=== PATIENT | male | born 1955 | race Caucasian/White ===

== ENCOUNTER 2018-03-06 10:52 | Emergency (ER) | payer BC, OTHER ==
[2018-03-06 11:00] VITALS: RESP 18; TEMP 98.1
--- NOTE | 2018-03-06 11:09 | ED ---
General Adult HPI - General Chief complaint: Urogenital Stated complaint: urine retention Time Seen by Provider: 03/06/18 11:01 Source: patient, family, RN notes reviewed Mode of arrival: ambulatory Limitations: no limitations - History of Present Illness Initial comments: Patient is a pleasant 62-year-old male presenting to the emergency Department with complaints of decreased urination. Onset of symptoms was yesterday morning. Patient still is able to urinate however only small amounts. Patient is urinating frequently and has urgency. Patient states there may be some minimal dysuria at the very end. Patient does not have suprapubic fullness or abdominal tenderness. No history of similar symptoms previously. - Related Data Home Medications Medication Instructions Recorded Confirmed Aspirin 81 mg PO DAILY 09/06/14 03/06/18 Calcium Carbonate [Calcium] 600 mg PO DAILY 09/06/14 03/06/18 Cetirizine HCl [Zyrtec] 10 mg PO DAILY 09/06/14 03/06/18 Cholecalciferol [Vitamin D3] 1,000 unit PO DAILY 09/06/14 03/06/18 Albuterol Nebulized [Ventolin 2.5 mg INHALATION RT-QID PRN 03/06/18 03/06/18 Nebulized] Fish Oil/Dha/Epa [Fish Oil 1,200 1 cap PO DAILY 03/06/18 03/06/18 mg Fish Oil] Multivitamins, Thera [Multivitamin 1 tab PO DAILY 03/06/18 03/06/18 (formulary)] Super B Complex 1 tab PO DAILY 03/06/18 03/06/18 predniSONE 40 mg PO DAILY 03/06/18 03/06/18 Previous Rx's Medication Instructions Recorded Sulfamethox-Tmp 800-160Mg [Bactrim 1 each PO Q12HR #20 tab 03/06/18 DS 800-160 mg] Allergies Allergy/AdvReac Type Severity Reaction Status Date / Time diphenhydramine HCl AdvReac Upset Verified 03/06/18 11:13 [From Benadryl] stomach Review of Systems ROS Statement: Those systems with pertinent positive or pertinent negative responses have been documented in the HPI. ROS Other: All systems not noted in ROS Statement are negative. Constitutional: Denies: fever Eyes: Denies: eye pain ENT: Denies: ear pain Respiratory: Denies: cough Cardiovascular: Denies: chest pain Endocrine: Denies: fatigue Gastrointestinal: Denies: abdominal pain Genitourinary: Reports: as per HPI, urgency, frequency. Denies: hematuria Musculoskeletal: Denies: back pain Skin: Denies: rash Neurological: Denies: weakness Past Medical History Past Medical History: Hyperlipidemia Additional Past Medical History / Comment(s): 09-11-14 ADMITTED TO [facility] WITH [facility] [employer] [facility] [id number] allergies History of Any Multi-Drug Resistant Organisms: None Reported Past Surgical History: Adenoidectomy, Appendectomy, Hernia Repair, Tonsillectomy Additional Past Surgical History / Comment(s): colonoscopy, hernia INUINAL/ UMBILCAL, gastritis Past Anesthesia/Blood Transfusion Reactions: No Reported Reaction Past Psychological History: No Psychological Hx Reported Smoking Status: Never smoker Past Alcohol Use History: Rare Past Drug Use History: None Reported - Past Family History Mother Additional Family Medical History / Comment(s): tumur in stomach,taken out ca free Father Family Medical History: COPD, Dementia General Exam Limitations: no limitations General appearance: alert, in no apparent distress Head exam: Present: atraumatic Eye exam: Present: normal appearance Neck exam: Present: normal inspection Respiratory exam: Present: normal lung sounds bilaterally Cardiovascular Exam: Present: regular rate, normal rhythm GI/Abdominal exam: Present: soft. Absent: distended, tenderness, guarding, rebound, rigid exam: Present: normal inspection. Absent: testicular tenderness, urethral discharge, scrotal swelling Extremities exam: Present: normal inspection Neurological exam: Present: alert Psychiatric exam: Present: normal affect, normal mood Skin exam: Present: normal color Course Vital Signs 03/06/18 10:58 Temperature 98.1 F Pulse Rate 63 Respiratory 18 Rate Blood Pressure 165/74 O2 Sat by Pulse 99 Oximetry Medical Decision Making - Medical Decision Making Patient updated - Lab Data Lab Results 03/06/18 Range/Units 11:35 Urine Color Dark Yellow Urine Appearance Cloudy (Clear) Urine pH 6.0 (5.0-8.0) Ur Specific [place] 1.017 (1.001-1.035) Urine Protein Trace H (Negative) Urine Glucose (UA) Negative (Negative) Urine Ketones Negative (Negative) Urine Blood Large H (Negative) Urine Nitrite Positive (Negative) Urine Bilirubin Negative (Negative) Urine Urobilinogen <2.0 (<2.0) mg/dL Ur Leukocyte Esterase Large H (Negative) Urine RBC 111 H (0-5) /hpf Urine WBC 104 H (0-5) /hpf Urine Bacteria Occasional H (None) /hpf Urine Mucus Rare H (None) /hpf Disposition Clinical Impression: Urinary tract infection Disposition: HOME SELF-CARE Condition: Stable Instructions: Urinary Tract Infection in Men (ED) Additional Instructions: Please follow-up with primary care physician in the next couple days for recheck. Have primary care physician check urine culture results. Return for unable to urinate, pain, fevers, worsening symptoms or other concerns. Prescriptions: Sulfamethox-Tmp 800-160Mg [Bactrim DS 800-160 mg] 1 each PO Q12HR #20 tab Is patient prescribed a controlled substance at d/c from ED?: No Referrals: Khadra Jenkins MD [Primary Care Provider] - 1-2 days Time of Disposition: 13:05
[2018-03-06 11:58] LABS: Appearance,Urine Cloudy (Clear); Bacteria,Urine Occasional /hpf; Bilirubin,Urine Negative (Negative); Blood,Urine Large (Negative); Color,Urine Dark Yellow; Glucose,Urine (UA) Negative (Negative); Ketones,Urine Negative (Negative); Leukocyte Esterase,Urine Large (Negative); Mucus,Urine Rare /hpf; Nitrite,Urine Positive (Negative); Protein,Urine Trace (Negative); RBC,Urine 111 /hpf (0-5); Specific Gravity,Urine 1.017 (1.001-1.035); Urobilinogen,Urine <2.0 mg/dL (<2.0); WBC,Urine 104 /hpf (0-5)
[2018-03-06 13:28] VITALS: BP 135/92; PULSE 61
== END 2018-03-06 13:24 | disposition home or self-care (01) ==
LOC: EC 10:52
DX: N39.0 Urinary tract infection, site not specified (principal); Z79.82 Long term (current) use of aspirin; Z79.52 Long term (current) use of systemic steroids; Z79.899 Other long term (current) drug therapy; Z88.8 Allergy status to other drugs, medicaments and biological substances
CPT/HCPCS: 81001; 87086; 99283

== ENCOUNTER 2018-03-30 11:43 | Emergency (ER) | payer OTHER ==
[2018-03-30 12:00] VITALS: BP 170/81; PULSE 66; RESP 18; TEMP 98.5
--- NOTE | 2018-03-30 12:12 | ED ---
General Adult HPI - General Chief complaint: Extremity Problem,Nontraumatic Stated complaint: leg pain Time Seen by Provider: 03/30/18 12:02 Source: patient, RN notes reviewed Mode of arrival: ambulatory Limitations: no limitations - History of Present Illness Initial comments: 62-year-old male with a past medical history of hyperlipidemia presents to the emergency department for a chief complaint of left calf pain. Patient describes this pain as a dull aching. Patient states this pain started last night while he was lying in bed. He denies pain improving with dependency of the left leg. He denies any alleviating or aggravating factors. He denies any injuries. Patient states he wants to be sure it is not a blood clot. Patient does not have a history of any clotting disorders or blood clots in the past. He denies any shortness of breath or chest pain. He denies any erythema edema or increased warmth of the left calf. He denies any fevers or chills at home. He denies any history of arterial disease. Patient has no other complaints at this time including shortness of breath, chest pain, abdominal pain, nausea or vomiting, headache, or visual changes. - Related Data Home Medications Medication Instructions Recorded Confirmed Aspirin 81 mg PO DAILY 09/06/14 03/30/18 Calcium Carbonate [Calcium] 600 mg PO DAILY 09/06/14 03/30/18 Cholecalciferol [Vitamin D3] 1,000 unit PO DAILY 09/06/14 03/30/18 Fish Oil/Dha/Epa [Fish Oil 1,200 1 cap PO DAILY 03/06/18 03/30/18 mg Fish Oil] Multivitamins, Thera [Multivitamin 1 tab PO DAILY 03/06/18 03/30/18 (formulary)] Budesonide/Formoterol Fumarate 1 puff INHALATION RT-BID 03/30/18 03/30/18 [Symbicort 160-4.5 Mcg Inhaler] Vitamin B Complex 1 cap PO DAILY 03/30/18 03/30/18 Allergies Allergy/AdvReac Type Severity Reaction Status Date / Time grass pollen Allergy Unknown Verified 03/30/18 12:20 Milk Containing Products Allergy Unknown Verified 03/30/18 12:20 ragweed pollen Allergy Unknown Verified 03/30/18 12:20 diphenhydramine HCl AdvReac Upset Verified 01/05/19 12:20 [From Benadryl] stomach Review of Systems ROS Statement: Those systems with pertinent positive or pertinent negative responses have been documented in the HPI. ROS Other: All systems not noted in ROS Statement are negative. Past Medical History Past Medical History: Hyperlipidemia Additional Past Medical History / Comment(s): 09-11-14 ADMITTED TO [facility] WITH [facility] [employer] [facility] [id number] allergies History of Any Multi-Drug Resistant Organisms: MRSA Date of last positivie culture/infection: 03/06/18 MDRO Source:: MRSA URINE Past Surgical History: Adenoidectomy, Appendectomy, Hernia Repair, Tonsillectomy Additional Past Surgical History / Comment(s): colonoscopy, hernia INUINAL/ UMBILCAL, gastritis Past Anesthesia/Blood Transfusion Reactions: No Reported Reaction Past Psychological History: No Psychological Hx Reported Smoking Status: Never smoker Past Alcohol Use History: Rare Past Drug Use History: None Reported - Past Family History Mother Additional Family Medical History / Comment(s): tumur in stomach,taken out ca free Father Family Medical History: COPD, Dementia General Exam Limitations: no limitations General appearance: alert, in no apparent distress Head exam: Present: atraumatic, normocephalic, normal inspection Eye exam: Present: normal appearance, PERRL, EOMI. Absent: scleral icterus, conjunctival injection, periorbital swelling ENT exam: Present: normal exam, mucous membranes moist Neck exam: Present: normal inspection, full ROM. Absent: tenderness, meningismus, lymphadenopathy Respiratory exam: Present: normal lung sounds bilaterally. Absent: respiratory distress, wheezes, rales, rhonchi, stridor Cardiovascular Exam: Present: regular rate, normal rhythm, normal heart sounds. Absent: systolic murmur, diastolic murmur, rubs, gallop, clicks Extremities exam: Present: full ROM (Full range of motion of the left lower extremity ), tenderness (Very minimal tenderness noted to the left calf), normal capillary refill (Capillary refill less than 2 seconds in the left lower extremities. DP and PT pulses), calf tenderness (minimal calf tenderness. circumference appears equal bilat. no significant erythema, edema, increased warmth. no evidence of infection or open wounds, negative homans). Absent: pedal edema Neurological exam: Present: alert, oriented X3, CN II-XII intact Psychiatric exam: Present: normal affect, normal mood Course Vital Signs 03/30/18 11:57 Temperature 98.5 F Pulse Rate 66 Respiratory 18 Rate Blood Pressure 170/81 O2 Sat by Pulse 98 Oximetry Medical Decision Making - Medical Decision Making 62-year-old male with a past medical history of hyperlipidemia presents to the emergency department for left calf pain times one day. This started last night. Patient would like to make sure this is not a DVT. No history of DVTs. On exam patient does have positive Doppler pulses equal in the bilateral extremities. Warmth of bilateral feet are equal. No increased erythema, edema. Negative Homans sign in the left lower leg. Ultrasound negative for DVT. At this time discussed with patient that this could be possibly a calf strain. Patient could also have chronic peripheral arterial disease. However as patient does not have significant pain, pulses are equal in bilateral lower extremities, capillary refill is less than 2 seconds, foot is warm acute occlusion is unlikely. Discussed following up with his primary care provider in one to 2 days and returning if he has worsening symptoms. Discussed symptoms to watch for in depth with patient. All questions answered. Patient was given a sandwich and a water prior to leaving as he was hungry. Disposition Clinical Impression: Pain of left calf Disposition: HOME SELF-CARE Condition: Good Instructions: Leg Pain (ED) Additional Instructions: Please follow up with primary care in 1-2 days. Return if you have any worsening symptoms such as severe pain or any other concerns. Is patient prescribed a controlled substance at d/c from ED?: No Referrals: Khadra Jenkins MD [Primary Care Provider] - 1-2 days Time of Disposition: 14:23
--- NOTE | 2018-03-30 14:11 | US ---
EXAMINATION TYPE: US venous doppler duplex LE LT DATE OF EXAM: 03/30/2018 1:24 PM COMPARISON: Previous study dated 11/25/2013. CLINICAL HISTORY: Pain. Left calf pain today; denies swelling; no prior DVT SIDE PERFORMED: Left TECHNIQUE: The lower extremity deep venous system is examined utilizing real time linear array sonog monica with graded compression, doppler sonography and color-flow sonography. VESSELS IMAGED: Common Femoral Vein Deep Femoral Vein Greater Saphenous Vein * Femoral Vein Popliteal Vein Small Saphenous Vein * Proximal Calf Veins (* superficial vessels) Left Leg: Negative for DVT No popliteal fossa lesion is seen. IMPRESSION: THIS EXAMINATION IS NEGATIVE FOR PULMONARY EMBOLUS.
== END 2018-03-30 14:54 | disposition home or self-care (01) ==
LOC: EC 11:43
DX: M79.662 Pain in left lower leg (principal); Z86.14 Personal history of Methicillin resistant Staphylococcus aureus infection; Z79.82 Long term (current) use of aspirin; Z79.51 Long term (current) use of inhaled steroids; Z91.048 Other nonmedicinal substance allergy status; Z91.011 Allergy to milk products; Z88.8 Allergy status to other drugs, medicaments and biological substances
CPT/HCPCS: 99283

== ENCOUNTER → 2018-05-31 | Outpatient (CLI) | payer OTHER ==
[2018-06-04 12:37] LABS: Alpha 1 Anti-Trypsin 132 mg/dL (90 - 200)
== END | disposition home or self-care (01) ==
LOC: LABWHC1 10:01
PROVIDERS: ATTEND Allergy & Immunology
DX: J44.9 Chronic obstructive pulmonary disease, unspecified (principal)
CPT/HCPCS: 36415; 82103; 82104

== ENCOUNTER → 2020-12-02 | Outpatient (CLI) | payer OTHER ==
--- NOTE | 2020-12-02 19:06 | XR ---
EXAMINATION TYPE: XR chest 2V DATE OF EXAM: 12/02/2020 COMPARISON: None HISTORY: 65-year-old male J45.909, asthma TECHNIQUE: Frontal and lateral views FINDINGS: The cardiomediastinal silhouette, aorta, and pulmonary vasculature are within normal limits. Tiny nod ule medial left apex projecting over the left posterior third rib. Some strandy atelectasis at the le ft base. No consolidation or pleural effusion. Lungs and pleural spaces are clear. IMPRESSION: 1. No definite acute process. 2. Possible subtle left apical pulmonary nodule versus bone island. CT of the chest recommended to ex clude a pulmonary nodule.
[2020-12-02 21:48] LABS: Basophils # (A) 0.05 X 10*3/uL (0.00-0.10); Basophils % (A) 0.6 %; Eosinophils % (A) 2.4 %; HCT 43.7 % (39.6-50.0); HGB 14.7 g/dL (13.0-17.0); Lymphocytes # (A) 2.04 X 10*3/uL (0.90-5.00); Lymphocytes % (A) 24.5 %; MCH 30.8 pg (27.0-32.0); MCHC 33.6 g/dL (32.0-37.0); MCV 91.4 fL (80.0-97.0); Mean Platelet Volume 11.3 fL (9.5-12.2); Monocytes # (A) 0.65 X 10*3/uL (0.20-1.00); Monocytes % (A) 7.8 %; Neutrophils # (A) 5.35 X 10*3/uL (1.80-7.70); Neutrophils % (A) 64.5 %; Platelet Count 247 X 10*3/uL (140-440); RBC 4.78 X 10*6/uL (4.40-5.60); RDW 12.3 % (11.5-14.5); WBC 8.31 X 10*3/uL (4.50-10.00)
[2020-12-03 04:40] LABS: African American GFR (CKD) 74.1 (60.0-200.0); Albumin 4.9 g/dL (3.80-4.90); Albumin/Globulin Ratio 1.58 (1.60-3.17); Anion Gap 12.5 mmol/L (4.00-12.00); Calcium 9.8 mg/dL (8.7-10.3); Carbon Dioxide 24.5 mmol/L (21.6-31.8); Globulin 3.1 g/dL (1.6-3.3); Potassium 4.4 mmol/L (3.5-5.5); Total Bilirubin 0.5 mg/dL (0.3-1.2)
== END | disposition home or self-care (01) ==
LOC: LABWHC1 12:53
PROVIDERS: ATTEND Surgery Plastic and Reconstructive Surgery
DX: J45.909 Unspecified asthma, uncomplicated (principal); I10 Essential (primary) hypertension; K40.90 Unilateral inguinal hernia, without obstruction or gangrene, not specified as recurrent
CPT/HCPCS: 36415; 71046; 80053; 85025; 93005

== ENCOUNTER 2021-03-04 06:20 | Day surgery (SDC) | payer OTHER ==
[2021-03-01 15:46] VITALS: BMI 25.5
[~2021-03-04 06:20] MED LIST: DEXAMETHASONE SOD PHOSPHATE 4 MG/ML 1 ML VIAL IV ONE; HEPARIN SODIUM,PORCINE/PF 5,000 UNIT/0.5 ML SYRINGE SQ PRN; LACTATED RINGERS 1,000 ML IV SCH; MIDAZOLAM 2 MG/2 ML VIAL IV PRN; ONDANSETRON 4 MG/2 ML VIAL IVP ONE; SCOPOLAMINE 1.5MG/72HR PATCH TRANSDERM ONE
[2021-03-04] MEDS ORDERED: GABAPENTIN 300 MG CAP PO STA (06:33)
[2021-03-04] MEDS ORDERED: TAMSULOSIN 0.4 MG CAP.ER.24H PO STA (06:33)
[2021-03-04] MEDS ORDERED: ACETAMINOPHEN TAB 500 MG TAB PO STA (06:33)
--- NOTE | 2021-03-04 06:33 | P.GSHP ---
History of Present Illness H&P Date: 03/04/21 CHIEF COMPLAINT: Ventral hernia HISTORY OF PRESENT ILLNESS: The patient is a 65-year-old male presents with a history of swelling and pain along the abdomen from a hernia. Symptoms have been present for more than 3 months. Now he presents for surgical intervention. PAST MEDICAL HISTORY: Please see list. PAST SURGICAL HISTORY: Please see list. MEDICATIONS: Please see list. ALLERGIES: Please see list. SOCIAL HISTORY: No illicit drug use FAMILY HISTORY: No reports of Crohn disease or ulcerative colitis. REVIEW OF ORGAN SYSTEMS: CONSTITUTIONAL: No reports of fevers or chills. No reports of weight loss despite prior attempts. GI: Denies any blood in stools or constipation. PHYSICAL EXAM: VITAL SIGNS: Stable GENERAL: Well-developed pleasant male in no acute distress. HEENT: No scleral icterus. Extraocular movements grossly intact. Moist buccal mucosa. NECK: Supple without lymphadenopathy. CHEST: Unlabored respirations. Equal bilateral excursions. CARDIOVASCULAR: Regular rate and rhythm. Distal 2+ pulses. ABDOMEN: Soft, nondistended. Palpable defect of the abdomen. No peritoneal signs. MUSCULOSKELETAL: No clubbing, cyanosis, or edema. ASSESSMENT: 1. Ventral hernia PLAN: 1. Recommend proceeding with robotic ventral hernia repair with mesh. 2. Benefits and risks of surgical intervention was discussed including possibility of open technique. 3. DVT prophylaxis. 4. Antibiotic prophylaxis. 5. Non narcotic pain management including abdominal wall block described Past Medical History Past Medical History: Asthma, GERD/Reflux, Hyperlipidemia Additional Past Medical History / Comment(s): GLAUCOMA History of Any Multi-Drug Resistant Organisms: MRSA Date of last positivie culture/infection: 03/06/18 MDRO Source:: MRSA URINE Past Surgical History: Adenoidectomy, Appendectomy, Cholecystectomy, Hernia Repair, Tonsillectomy Additional Past Surgical History / Comment(s): colonoscopy, hernia INGUINAL/ UMBILCAL HERNIA SURGERY Past Anesthesia/Blood Transfusion Reactions: No Reported Reaction Smoking Status: Never smoker - Past Family History Mother Family Medical History: Cancer Additional Family Medical History / Comment(s): COLON CANCER Father Family Medical History: COPD, Dementia Medications and Allergies Home Medications Medication Instructions Recorded Confirmed Type Aspirin 81 mg PO DAILY 09/06/14 03/01/21 History Calcium Carbonate [Calcium] 600 mg PO DAILY 09/06/14 03/01/21 History Cholecalciferol [Vitamin D3 (25 1,000 unit PO DAILY 09/06/14 03/01/21 History Mcg = 1000 Iu)] Fish Oil/Dha/Epa [Fish Oil 1,200 1 cap PO DAILY 03/06/18 03/01/21 History mg Fish Oil] Multivitamins, Thera [Multivitamin 1 tab PO DAILY 03/06/18 03/01/21 History (formulary)] Budesonide/Formoterol Fumarate 1 puff INHALATION HS 03/30/18 03/01/21 History [Symbicort 160-4.5 Mcg Inhaler] Vitamin B Complex 1 cap PO DAILY 03/30/18 03/01/21 History Albuterol Nebulized [Ventolin 2.5 mg INHALATION DAILY 03/01/21 03/01/21 History Nebulized] Cetirizine HCl [Zyrtec] 10 mg PO HS 03/01/21 03/01/21 History L.acidoph,Paracasei, B.lactis 1 each PO DAILY 03/01/21 03/01/21 History [Probiotic] Latanoprost/Pf [Latanoprost 0.005% 1 drop BOTH EYES HS 03/01/21 03/01/21 History Eye Drop] Omeprazole [PriLOSEC] 20 mg PO AC-BRKFST 03/01/21 03/01/21 History Allergies Allergy/AdvReac Type Severity Reaction Status Date / Time grass pollen Allergy Unknown Verified 03/01/21 15:15 Milk Containing Products Allergy Unknown Verified 03/01/21 15:15 phenylephrine Allergy DIFFICULTY Verified 03/01/21 15:18 URINATING ragweed pollen Allergy Unknown Verified 03/01/21 15:15
[2021-03-04] MEDS ORDERED: MELOXICAM 7.5 MG TAB PO STA (06:35)
[2021-03-04] MEDS ORDERED: HYDROmorphone 0.5 MG/0.5 ML SYRINGE IVP PRN (07:00)
[2021-03-04 07:44] LABS: Basophils % (A) 0 %; Eosinophils # (A) 0.2 k/uL (0-0.7); Eosinophils % (A) 3 %; HCT 45.2 % (39.0-53.0); HGB 15.7 gm/dL (13.0-17.5); Lymphocytes # (A) 1.7 k/uL (1.0-4.8); Lymphocytes % (A) 22 %; MCH 32.5 pg (25.0-35.0); MCHC 34.8 g/dL (31.0-37.0); MCV 93.5 fL (80.0-100.0); Mean Platelet Volume 7.9; Monocytes # (A) 0.4 k/uL (0-1.0); Monocytes % (A) 6 %; Neutrophils # (A) 5.1 k/uL (1.3-7.7); Neutrophils % (A) 67 %; Platelet Count 234 k/uL (150-450); RBC 4.84 m/uL (4.30-5.90); RDW 12.6 % (11.5-15.5); WBC 7.6 k/uL (3.8-10.6)
[2021-03-04 07:58] LABS: Glucose,Whole Blood 127 mg/dL (75-99)
[2021-03-04 08:09] LABS: ALT 29 U/L (4-49); AST 33 U/L (17-59); African American GFR (CKD) >90 (>60 ml/min/1.73 sqM); Albumin 4.5 g/dL (3.5-5.0); Alkaline Phosphatase 83 U/L (38-126); Anion Gap 13 mmol/L; Blood Urea Nitrogen 15 mg/dL (9-20); Calcium 9.9 mg/dL (8.4-10.2); Carbon Dioxide 27 mmol/L (22-30); Chloride 104 mmol/L (98-107); Glucose 123 mg/dL (74-99); Non-African American GFR(CKD) >90 (>60 ml/min/1.73 sqM); Potassium 3.4 mmol/L (3.5-5.1); Sodium 144 mmol/L (137-145); Total Bilirubin 0.7 mg/dL (0.2-1.3); Total Protein 8.2 g/dL (6.3-8.2)
[2021-03-04] MEDS ORDERED: LIDOCAINE 1% INJ 10MG/ML (20 ML MDV) ONE (08:56)
[2021-03-04] MEDS ORDERED: PROPOFOL 10 MG/ML 20 ML VIAL IV ONE (08:56)
[2021-03-04] MEDS ORDERED: MIDAZOLAM 2 MG/2 ML VIAL ONE (08:56)
[2021-03-04] MEDS ORDERED: PHENYLEPHRINE-0.9% NACL SYG 1,000 MCG/10 ML SYRINGE ONE (08:56)
[2021-03-04] MEDS ORDERED: NEOSTIGMINE 1 MG/ML 10 ML VIAL ONE (08:56)
[2021-03-04] MEDS ORDERED: .fentaNYL (PF) 50 MCG/ML 2 ML AMP ONE (08:56)
[2021-03-04] MEDS ORDERED: ePHEDrine 50 MG/ML 1 ML AMP ONE (08:56)
[2021-03-04] MEDS ORDERED: GLYCOPYRROLATE 0.2 MG/ML 2 ML VIAL ONE (08:56)
[2021-03-04] MEDS ORDERED: ROCURONIUM 10 MG/ML (5 ML VIAL) IV ONE (08:56)
[2021-03-04] MEDS ORDERED: SUCCINYLCHOLINE CHLORIDE 100 MG/5 ML SYR IV ONE (08:56)
[2021-03-04] MEDS ORDERED: ROPIVACAINE 5 MG/ML 30 ML VIAL ONE (08:56)
[2021-03-04] MEDS ORDERED: LACTATED RINGERS 1,000 ML IV ONE (09:30)
[2021-03-04] MEDS ORDERED: BUPIVACAIN-EPI 0.25%-1:200,000 30 ML VIAL SQ ONE (09:30)
--- NOTE | 2021-03-04 10:09 | P.ANPRN ---
Procedure Note - Anesthesia - Nerve Block Performed Bilateral Erector Spinae Single Time Out Performed: Yes ([id number]) Date of Procedure: 03/04/21 Procedure Start Time: 07:59 Procedure Stop Time: 08:07 Location of Patient: PreOp Indication: Acute Post-Operative Pain, Requested by Surgeon Specifically requested for management of pain by : Dhara Mendes Sedation Type: Sedate with meaningful contact maintained Preparation: Sterile Prep Position: Prone Catheter: None Needle Types: Pajunk Needle Gauge: 21 Ultrasound used to visualize needle placement: Yes Ultrasound used to observe medication spread: Yes Injectate: 0.5% Ropivacaine (see comment for volume) (15cc + 15cc nacl pf each side) Blood Aspirated: No Pain Paresthesia on Injection Noted: No Resistance on Injection: Normal Image Stored and Saved: Yes Events: Uneventful and Well Tolerated
[2021-03-04 10:57] VITALS: TEMP 98
[2021-03-04] MEDS ORDERED: IBUPROFEN 200 MG TAB PO ONE (12:04)
--- NOTE | 2021-03-04 12:33 | P.OP ---
Date of Procedure: 03/04/21 Description of Procedure: SURGEON: DHARA MENDES MD PREOPERATIVE DIAGNOSES: 1. Left lower quadrant ventral hernia 2. Periumbilical abdominal pain 3. Asthma with chronic obstructive pulmonary disease 4. Gastroesophageal reflux disease 5. Glaucoma 6. Hyperlipidemia 7. History of left inguinal hernia repair 8. History of umbilical hernia repair 9. Generalized anxiety disorder 10. ADD with ADHD POSTOPERATIVE DIAGNOSES: 1. Left lower quadrant ventral hernia 2. Left inguinal hernia, recurrent 3. Asthma with chronic obstructive pulmonary disease 4. Gastroesophageal reflux disease 5. Glaucoma 6. Hyperlipidemia 7. History of right inguinal hernia repair 8. History of umbilical hernia repair 9. Generalized anxiety disorder 10. ADD with ADHD 11. Pelvic adhesions, bilateral 12. Left inguinal lipoma OPERATION: 1. Robotic-assisted da Rishi Xi laparoscopic lysis of adhesions, over 30 minutes 2. Robotic-assisted da Rishi Xi laparoscopic repair of recurrent left inguinal hernia with mesh, 10 x [address] 3. Excision of right inguinal lipoma, 4 cm ANESTHESIA: General with local anesthetic ESTIMATED BLOOD LOSS: 5 mL. SPECIMENS REMOVED: Left inguinal hernia lipoma COMPLICATIONS: None. FINDINGS: 1. Recurrent large left inguinal hernia involving indirect, direct with 5 cm posterior wall defect 2. Incarcerated left inguinal hernia involving fat reduced 3. Incarcerated left inguinal lipoma, 4 cm resected 4. Moderate pelvic adhesions lysed bilateral 5. Exploration of the periumbilical area without recurrent umbilical hernia INDICATIONS: The patient is a 65-year-old gentleman with prior history of umbilical including a left inguinal hernia. He reports large defect of the left lower abdomen. Surgical options were described. Laparoscopic versus open and robotic approaches were discussed. Benefits and risks including bleeding, infection, injury to the vas deferens as well as sterility and chronic groin pain were reviewed. Placement of mesh was also described. Informed consent was obtained. DESCRIPTION: The patient was brought to the operating room and initially laid in supine position. The abdomen had been prepped and draped in standard sterile fashion. Ioban draping was also placed. Prior to incision, a timeout protocol was confirmed with surgical team regarding patient's name including procedures to be performed and location along the right groin. Second-generation cephalosporin, Ancef 2 g was given. Heparin 5000 u nits were given including bilateral SCDs. Initial positioning for the robotic assisted ports were selected whereby 20 cm superior to the target anatomy, 0 degree 5 mm laparoscopic trocar entry was p erformed at the left upper quadrant. The abdomen was insufflated to 15 mmHg which he had tolerated well. Diagnostic laparoscopy demonstrated omental abdominal wall adhesions on the bilateral groins obscuring the left inguinal canal and right. Dense adhesions were found along the umbilicus as well. Next, along the epigastrium, 8 mm robot trocar was placed. An 8-mm robotic trocar was placed under direct visualization at the right upper quadrant. An 8 mm port was placed at the left upper quadrant. All trocars were positioned between 8 to 10-cm apart from each other. Accessory laparoscopic 12 mm trochars placed along the right upper quadrant. The [employer] XI robot was primed, draped, prepared for docking along the right side of the patient. The patient was placed in Trendelenberg position 14-degrees. I then went to the [employer] Xi console. The administrative office assistant was at bedside for exchange of the robot arms and equipment. Laparoscopic lysis of adhesions along the umbilicus was performed first to explore for recurrent hernia. No recurrent umbilical hernia defect was identified. Adhesions were lysed. Attention was also brought to the right groin where the cecum was adhered to the abdominal wall. Lysis of adhesions using scissors is performed of adhesions causing the patient's pain. On the left groin, the sigmoid colon was adhered to the abdominal wall. Adhesions were taken down using the scissors demonstrating incarcerated indirect left inguinal hernia involving fat as well as complete weakness of the left posterior floor over 5 cm consistent with his left lower quadrant ventral hernia. Lysis of adhesions over 30 minutes was performed. A 4 cm incarcerated left inguinal lipoma was delivered from the hernia defect. Using a 2-0 nonabsorbable VLOC, the peritoneal defect of the left inguinal indirect hernia was closed using a pursestring suture. The defect was found to be completely closed. With the large weakness of the left posterior floor of the pelvis, a 10 x [address] mesh by Bard was selected. As an onlay, Ventralight ST mesh by Bard was entered into the abdominal cavity via the 12 mm trocar. The mesh was tacked to the pelvis using nonabsorbable 2-0 VLOC 9-inch length sutures. The robot was undocked from the patient's bedside. I then rescrubbed into the case. Insufflation was released from the abdominal cavity and all instruments were removed from the abdominal cavity. The rest of incisions were reapproximated using 4-0 Monocryl in a running subcuticular fashion. Local anesthetic was placed along the incision including for a right groin block. Incisions were cleansed using dilute hydrogen peroxide. Liquid glue was applied to the skin. At the end of the procedure, the needle, sponge and instrument counts had been verified correct by the surgical scrub technologist. The patient had tolerated the procedure well and was taken to the postanesthesia care unit in stable condition. Plan - Discharge Summary Discharge Rx Participant: Yes New Discharge Prescriptions: New Simethicone [Gas-X] 125 mg PO AC-TID PRN #20 capsule PRN Reason: Pain Ibuprofen [Motrin] 600 mg PO Q8HR PRN #30 tab PRN Reason: Pain Acetaminophen Tab [Tylenol Tab] 1,000 mg PO Q6HR PRN #30 tablet PRN Reason: Pain Continue Cholecalciferol [Vitamin D3 (25 Mcg = 1000 Iu)] 1,000 unit PO DAILY Aspirin 81 mg PO DAILY Calcium Carbonate [Calcium] 600 mg PO DAILY Multivitamins, Thera [Multivitamin (formulary)] 1 tab PO DAILY Fish Oil/Dha/Epa [Fish Oil 1,200 mg Fish Oil] 1 cap PO DAILY Budesonide/Formoterol Fumarate [Symbicort 160-4.5 Mcg Inhaler] 1 puff INHALATION HS Vitamin B Complex 1 cap PO DAILY Cetirizine HCl [Zyrtec] 10 mg PO HS Omeprazole [PriLOSEC] 20 mg PO AC-BRKFST L.acidoph,Paracasei, B.lactis [Probiotic] 1 each PO DAILY Albuterol Nebulized [Ventolin Nebulized] 2.5 mg INHALATION DAILY Latanoprost/Pf [Latanoprost 0.005% Eye Drop] 1 drop BOTH EYES HS Discharge Medication List Aspirin 81 mg PO DAILY 09/06/14 [History] Calcium Carbonate [Calcium] 600 mg PO DAILY 09/06/14 [History] Cholecalciferol [Vitamin D3 (25 Mcg = 1000 Iu)] 1,000 unit PO DAILY 09/06/14 [History] Fish Oil/Dha/Epa [Fish Oil 1,200 mg Fish Oil] 1 cap PO DAILY 03/06/18 [History] Multivitamins, Thera [Multivitamin (formulary)] 1 tab PO DAILY 03/06/18 [History] Budesonide/Formoterol Fumarate [Symbicort 160-4.5 Mcg Inhaler] 1 puff INHALATION HS 03/30/18 [History] Vitamin B Complex 1 cap PO DAILY 03/30/18 [History] Albuterol Nebulized [Ventolin Nebulized] 2.5 mg INHALATION DAILY 03/01/21 [History] Cetirizine HCl [Zyrtec] 10 mg PO HS 03/01/21 [History] L.acidoph,Paracasei, B.lactis [Probiotic] 1 each PO DAILY 03/01/21 [History] Latanoprost/Pf [Latanoprost 0.005% Eye Drop] 1 drop BOTH EYES HS 03/01/21 [History] Omeprazole [PriLOSEC] 20 mg PO AC-BRKFST 03/01/21 [History] Acetaminophen Tab [Tylenol Tab] 1,000 mg PO Q6HR PRN #30 tablet 03/04/21 [Rx] Ibuprofen [Motrin] 600 mg PO Q8HR PRN #30 tab 03/04/21 [Rx] Simethicone [Gas-X] 125 mg PO AC-TID PRN #20 capsule 03/04/21 [Rx] Follow up Appointment(s)/Referral(s): Dhara Mendes MD [STAFF PHYSICIAN] - 03/08/21 (Telehealth) Patient Instructions/Handouts: *Surgery [facility] - Managing Your Pain After Surgery Without Opioids, Inguinal Hernia (DC), Ventral Hernia Repair (GEN) Activity/Diet/Wound Care/Special Instructions: No lifting for 10 pounds in 2 weeks, Mar 18. May shower. No bathtub soaks for 2 weeks Mar 18. Using antibacterial soap. Use ice along incisions for today to prevent swelling. Use Tylenol, simethicone and ibuprofen or Aleve scheduled for the next 24-48 hours for best pain relief. Discharge Disposition: HOME SELF-CARE
[2021-03-04 12:52] VITALS: BP 121/69; PULSE 73; RESP 16
== END 2021-03-04 13:50 | disposition home or self-care (01) ==
LOC: OR 06:20
PROVIDERS: ATTEND Surgery Plastic and Reconstructive Surgery
DX: K40.41 Unilateral inguinal hernia, with gangrene, recurrent (principal); K66.0 Peritoneal adhesions (postprocedural) (postinfection); D17.1 Benign lipomatous neoplasm of skin and subcutaneous tissue of trunk; J44.9 Chronic obstructive pulmonary disease, unspecified; K21.9 Gastro-esophageal reflux disease without esophagitis; H40.9 Unspecified glaucoma; E78.5 Hyperlipidemia, unspecified; Z98.890 Other specified postprocedural states; F41.1 Generalized anxiety disorder; F90.9 Attention-deficit hyperactivity disorder, unspecified type; Z90.49 Acquired absence of other specified parts of digestive tract; Z80.0 Family history of malignant neoplasm of digestive organs; Z82.5 Family history of asthma and other chronic lower respiratory diseases; Z81.8 Family history of other mental and behavioral disorders; Z79.51 Long term (current) use of inhaled steroids; Z79.899 Other long term (current) drug therapy; Z91.011 Allergy to milk products; Z88.8 Allergy status to other drugs, medicaments and biological substances; Z91.048 Other nonmedicinal substance allergy status
CPT/HCPCS: 49651; S2900; 64999; 80053; 85025; 88304